=== PATIENT | female | born 1945 | race Caucasian/White ===

== ENCOUNTER 2017-02-22 09:20 | Day surgery (SDC) | payer MEDICARE, MEDICAID ==
[2017-02-22 13:03] VITALS: BP 101/68
== END 2017-02-22 12:08 | disposition home or self-care (01) ==
LOC: SDC 09:20
PROC: 08RK3JZ Replacement of Left Lens with Synthetic Substitute, Percutaneous Approach (ICD-10-PCS; principal; 2017-02-22)
DX: H26.9 Unspecified cataract (principal)

== ENCOUNTER 2017-03-08 08:50 | Day surgery (SDC) | payer MEDICARE, MEDICAID ==
[2017-03-08 11:32] VITALS: BP 126/63
== END 2017-03-08 11:11 | disposition home or self-care (01) ==
LOC: SDC 08:50
PROC: 08RJ3JZ Replacement of Right Lens with Synthetic Substitute, Percutaneous Approach (ICD-10-PCS; principal; 2017-03-08)
DX: H26.9 Unspecified cataract (principal)

== ENCOUNTER → 2017-04-15 | Outpatient (CLI) | payer MEDICARE, MEDICAID ==
[~2017-04-15] MED LIST: ACETAMINOPHEN &1 TA1 PO; ALBUTEROL 0.083% INH INH; APAP; ARICEPT 5MG TAB5 MG PO; B COMPLEX 501 TAB PO; BENZONATATE200 MG PO; BONIVA150 MG PO; CARLSON VITAM2000 IU PO; CHELATED MAGNE200 MG PO; CIPRO 500MG TA500 MG PO; CLOPIDOGREL75 M2 PO; CYMBALTA30 M1 PO; FLEXERIL10 M1 PO; FUROSEMIDE 20MG20 MG PO; GABAPENTIN300 M1 PO; HYDROCODON; IBU800 MG PO; KEFLEX500 M1 PO; LEVOTHYROXIN0.175 MG PO; LOPRESSOR 25MG.25 M1 PO; LOVASTATIN20 MG PO; MASON NATURAL O1 SG1 PO; MEDROL 4MG. DOSE4 MG PO; METFORMIN ER500 M1 PO; MUCUS RELIEF400 MG PO; PHENOBARBITAL16.2 MG PO; PHENYTOIN SODI100 M2 PO; PREDNISONE 20MG20 MG PO; PREDNISONE50 MG PO; PRILOSEC OTC20 MG PO; ROBITUSSIN10 ML/UDC PO; STOOL SOFTENER100 MG PO; SYMBICORT1 AE1 INH; THEO DUR PO; TRAZODONE100 MG PO; VENTOLIN H0.09 MG/AC IH; VENTOLIN H0.09 MG/Ac; ZITHROMAX Z PA250 MG PO; ZITHROMAX Z-PA250 M2 PO; ZOFRAN4 MG PO; ZOLPIDEM 10MG T10 MG PO
[2017-04-15 15:08] LABS: LYMPH # 2.6 K/mm3 (0.7-4.5); LYMPH % 28.4 % (10-50.0)
== END ==
LOC: LAB 14:45
PROVIDERS: Internal Medicine Adolescent Medicine
DX: N18.6 End stage renal disease (principal)